=== PATIENT | female | born 1980 | race Two or more races ===

== ENCOUNTER 2023-05-17 14:52 | Outpatient (CLI) | payer BC | END 2023-05-17 14:53 | disposition home or self-care (01) | LOC: CSHMAMMO 14:52 | PROVIDERS: ATTEND Internal Medicine | DX: Z12.31 Encounter for screening mammogram for malignant neoplasm of breast (principal) | CPT/HCPCS: 77063; 77067 ==

== ENCOUNTER 2024-05-18 15:11 | Outpatient (CLI) | payer BC, OTHER | END 2024-05-18 15:12 | disposition home or self-care (01) | LOC: CSHMAMMO 15:11 | DX: Z12.31 Encounter for screening mammogram for malignant neoplasm of breast (principal) | CPT/HCPCS: 77063; 77067 ==